=== PATIENT | female | born 1965 | race African-American/Black ===

== ENCOUNTER 2016-10-15 19:46 | Emergency (ER) | payer MEDICAID ==
[~2016-10-15] VITALS: Ht 154.9 cm; Wt 88.5 kg
[~2016-10-15 19:46] MED LIST: AMOXICILLIN500 MG ORAL; AMOXICILLIN500 MG PO; CORTISPORIN EAR10 ML RIGHT EAR; EAR WAX DROPS15 ML RIGHT EAR; IBUPROFEN600 MG ORAL; IBUPROFEN800 MG ORAL; NKM; NORCO 5-325 TA1 EACH ORAL; TRIAMTERENE-HC1 EAC5 PO; VICODIN 5-5001 EACH PO
[2016-10-15 20:02] VITALS: BP 107/77
[2016-10-15] MEDS ORDERED: Famotidine 20 MG/ 2ML VIAL IVP ONE (20:15)
[2016-10-15 20:46] LABS: BASOPHILS % (AUTO) 1.6 % (0.0-2.0); EOSINOPHILS % (AUTO) 1.7 % (0.0-3.0); LYMPHOCYTES % (AUTO) 52.1 % (20.0-45.0); MEAN CORPUSCULAR HEMOGLOBIN 30.3 PG (27.0-31.0); MEAN CORPUSCULAR HGB CONC 34.4 G/DL (32.0-36.0); MEAN CORPUSCULAR VOLUME 88 FL (80-99); MEAN PLATELET VOLUME 8.2 FL (6.5-10.1); MONOCYTES % (AUTO) 8.5 % (1.0-10.0); NEUTROPHILS % (AUTO) 36.1 % (45.0-75.0); PLATELET COUNT 214 K/UL (150-450); RED BLOOD COUNT 4.95 M/UL (4.20-5.40); RED CELL DISTRIBUTION WIDTH 12.2 % (11.6-14.8); WHITE BLOOD COUNT 5.5 K/UL (4.8-10.8)
[2016-10-15 21:07] LABS: CALCIUM 9.4 mg/dL (8.6-10.2); CREATININE 1.3 mg/dL (0.5-0.9); GLOMERULAR FILTRATION RATE 52.5 mL/min (>60)
[2016-10-15 21:09] LABS: TROPONIN I < 0.30 ng/mL (<=0.30)
[2016-10-15] MEDS ORDERED: Morphine Sulfate 4mg/ml Inj ONE (21:57)
[2016-10-15] MEDS ORDERED: Morphine Sulfate 4mg/ml Inj IVP ONE (22:00)
[2016-10-15] MEDS ORDERED: AMOXICILLIN500 MG ORAL (22:05)
[2016-10-15] MEDS ORDERED: CLARITHROMYCIN500 MG PO (22:05)
[2016-10-15] MEDS ORDERED: ACETAMINOPHEN-1 EAC1 ORAL (22:05)
[2016-10-15] MEDS ORDERED: OMEPRAZOLE40 M1 ORAL (22:05)
[2016-10-15] MEDS ORDERED: Solu-MEDROL 125mg Inj IVP ONE (22:15)
[2016-10-15] MEDS ORDERED: DiphenhydrAMINE 50mg/ml Inj IVP ONE (22:15)
[2016-10-15 22:30] VITALS: BP 111/74
[2016-10-15] MEDS ORDERED: DIPHENHYDRAMINE25 M1 ORAL (23:26)
[2016-10-15] MEDS ORDERED: PREDNISONE20 MG ORAL (23:26)
[2016-10-15 23:30] VITALS: BP 111/78
--- NOTE | 2016-10-15 23:51 | Emergency Room Report ---
History of Present Illness General Chief Complaint: Abdominal Pain Source: Patient Present Illness HPI 51-year-old female presents ED complaining of abdominal pain. States having this pain on and off since July but worse today. Pain is epigastric, sharp , 9/10, nonradiating. No other aggravating relieving factors. Denies chest pain or shortness of breath. Notes nausea, denies vomiting. States that last time she had these symptoms she was told she had H. pylori infection and was treated with antibiotics. Patient was told that she had an ulcer. No other aggravating relieving factors. Denies any other associated symptom Allergies: Coded Allergies: No Known Allergies (Unverified , 10/26/12) Patient History Past Medical History: asthma, ulcer, GERD Past Surgical History: none Pertinent Family History: none Social History: Denies: alcohol use, drug use, smoking Last Menstrual Period: 10-15yrs ago Now: No Immunizations: UTD Reviewed Nursing Documentation: PMH: Agreed, PSxH: Agreed Nursing Documentation-PMH Hx Hypertension: Yes Hx Asthma: Yes Hx Diabetes: No Review of Systems All Other Systems: negative except mentioned in HPI Physical Exam Vital Signs Date Time Temp Pulse Resp B/P Pulse Ox O2 Delivery O2 Flow Rate FiO2 10/15/16 19:54 98.1 78 14 107/77 100 Room Air Sp02 EP Interpretation: reviewed, normal General Appearance: no apparent distress, alert, GCS 15, non-toxic Head: normocephalic, atraumatic Eyes: bilateral eye PERRL, bilateral eye normal inspection ENT: hearing grossly normal, normal pharynx, no angioedema, normal voice Neck: full range of motion, supple/symm/no masses Respiratory: chest non-tender, lungs clear, normal breath sounds, speaking full sentences Cardiovascular #1: regular rate, rhythm, no edema Cardiovascular #2: 2+ carotid (R), 2+ carotid (L), 2+ radial (R), 2+ radial (L) , 2+ dorsalis pedis (R), 2+ dorsalis pedis (L) Gastrointestinal: normal bowel sounds, soft, non-distended, no guarding, no rebound, tenderness - epigastric Rectal: deferred Genitourinary: normal inspection, no CVA tenderness Musculoskeletal: back normal, gait/station normal, normal range of motion, non- tender Neurologic: alert, oriented x3, responsive, motor strength/tone normal, sensory intact, speech normal Psychiatric: judgement/insight normal, memory normal, mood/affect normal, no suicidal/homicidal ideation Reflexes: 3+ bicep (R), 3+ bicep (L), 3+ tricep (R), 3+ tricep (L), 3+ knee (R) , 3+ knee (L) Skin: normal color, no rash, warm/dry, well hydrated Lymphatic: no adenopathy Medical Decision Making Diagnostic Impression: Primary Impression: Allergic reaction caused by a drug Qualified Codes: T78.40XA - Allergy, unspecified, initial encounter Additional Impression: Gastritis Qualified Codes: K29.00 - Acute gastritis without bleeding ER Course Hospital Course 51-year-old F presents to ED with epigastric pain with Nausea differential diagnosis: gastritis, SBO, cholecystits Clinical course Patient placed on stretcher. On cardiac cath technologist. After initial history and physical I ordered labs, IV fluids, Zofran and pepcid, gi cocktail Labs - no leukocytosis, no electrolyte abnormalities, LFTs normal, UA unremarkable Upon reassessment, patient states pain improved somewhat. However given unremarkable abdominal exam we will likely discharge Patient given morphine for pain. Immediately patient developed shortness of breath and subjective throat swelling after morphine administration. Patient had never previously used morphine nor documents an allergy to any medications. Patient was given Solu-Medrol and Benadryl. Given IV fluids. allowed to rest and states she feels better. Patient instructed to tell providers in the future that she may have a morphine allergy Patient will be treated for H. pylori infection. Has previously been given amoxicillin and clarithromycin and omeprazole I feel this is a highly complex case requiring extensive working including EKG/ Rhythm strip, Xray/CT/US, Blood/urine lab work, repeat exams while in ED, and administration of strong opiates/narcotics for pain control, admission to hospital or close patient follow up. Diagnosis - gastritis , allergic reaction caused by drug Stable and discharged to home with prescriptions for omeprazole, clarithomycin, amoxicillin, benedryl, prednisone. Followup with PMD. Return to ED if symptoms recur or worsen Labs Test 10/15/16 20:25 White Blood Count 5.5 K/UL (4.8-10.8) Red Blood Count 4.95 M/UL (4.20-5.40) Hemoglobin 15.0 G/DL (12.0-16.0) Hematocrit 43.6 % (37.0-47.0) Mean Corpuscular Volume 88 FL (80-99) Mean Corpuscular Hemoglobin 30.3 PG (27.0-31.0) Mean Corpuscular Hemoglobin Concent 34.4 G/DL (32.0-36.0) Red Cell Distribution Width 12.2 % (11.6-14.8) Platelet Count 214 K/UL (150-450) Mean Platelet Volume 8.2 FL (6.5-10.1) Neutrophils (%) (Auto) 36.1 % (45.0-75.0) Lymphocytes (%) (Auto) 52.1 % (20.0-45.0) Monocytes (%) (Auto) 8.5 % (1.0-10.0) Eosinophils (%) (Auto) 1.7 % (0.0-3.0) Basophils (%) (Auto) 1.6 % (0.0-2.0) Sodium Level 138 mEQ/L (135-145) Potassium Level 4.0 mEQ/L (3.4-4.9) Chloride Level 98 mEQ/L (98-107) Carbon Dioxide Level 27 mEQ/L (20-30) Anion Gap 13 (5-15) Blood Urea Nitrogen 19 mg/dL (7-23) Creatinine 1.3 mg/dL (0.5-0.9) Estimat Glomerular Filtration Rate 52.5 mL/min (>60) Glucose Level 99 mg/dL (74-106) Calcium Level 9.4 mg/dL (8.6-10.2) Total Bilirubin 0.3 mg/dL (0.0-1.2) Aspartate Amino Transf (AST/SGOT) 18 U/L (5-40) Alanine Aminotransferase (ALT/SGPT) 12 U/L (3-33) Alkaline Phosphatase 83 U/L (35-104) Troponin I < 0.30 ng/mL (<=0.30) Total Protein 8.0 g/dL (6.6-8.7) Albumin 4.1 g/dL (3.5-5.2) Globulin 3.9 g/dL Albumin/Globulin Ratio 1.0 (1.0-2.7) Lipase 29 U/L (< 60) Last Vital Signs Date Time Temp Pulse Resp B/P Pulse Ox O2 Delivery O2 Flow Rate FiO2 10/15/16 22:30 98.1 77 19 111/74 100 Room Air Status: improved Disposition: HOME, SELF-CARE Condition: Stable Scripts Diphenhydramine Hcl* (DIPHENHYDRAMINE HCL*) 25 Mg Capsule 25 MG ORAL Q6H Y for Itching for 5 Days, #30 CAP 0 Refills Prov: JELENA TERRY M.D. 10/15/16 Prednisone* (PREDNISONE*) 20 Mg Tablet 40 MG ORAL DAILY, #10 TAB Prov: JELENA TERRY M.D. 10/15/16 Omeprazole (OMEPRAZOLE) 40 Mg Capsule.dr 40 MG ORAL DAILY, #30 CAP Prov: JELENA TERRY M.D. 10/15/16 Clarithromycin* (CLARITHROMYCIN*) 500 Mg Tablet 500 MG PO Q12HR for 10 Days, TAB Prov: JELENA TERRY M.D. 10/15/16 Amoxicillin* (AMOXIL*) 500 Mg Capsule 500 MG ORAL THREE TIMES A DAY for 10 Days, #30 CAP Prov: JELENA TERRY M.D. 10/15/16 Patient Instructions: Gastritis, Adult, [id number] JELENA TERRY M.D. Oct 15, 2016 23:51
== END 2016-10-15 23:30 | disposition home or self-care (01) ==
LOC: EMR 21:34
DX: T40.2X5A Adverse effect of other opioids, initial encounter (principal); Y92.238 Other place in hospital as the place of occurrence of the external cause; R06.02 Shortness of breath; R60.0 Localized edema; K29.00 Acute gastritis without bleeding; I10 Essential (primary) hypertension; J45.909 Unspecified asthma, uncomplicated
CPT/HCPCS: 36415; 80053; 83690; 84484; 85025; 96374; 96375; 99284; J1200; J2270; J2405; J2930; J7040; S0028